=== PATIENT | male | born 1935 | race Caucasian/White ===

== ENCOUNTER 2017-09-11 16:03 | Emergency (ER) | payer MEDICARE, OTHER ==
[~2017-09-11] VITALS: Ht 170.2 cm; Wt 59.0 kg
--- NOTE | 2017-09-11 16:49 | NUR ---
DR FELISA ROBERTO AT PT BEDSIDE AT THIS TIME
[2017-09-11 16:53] VITALS: BP 156/82
--- NOTE | 2017-09-11 17:05 | NUR ---
DR FELISA ROBERTO AT NURSES STATION STATIING THAT PT CAN LEAVE AND CALL NEXT WEEK FOR APPOINTMENT TIME/DATE
[2017-09-11 17:14] VITALS: BP 127/75
== END 2017-09-11 17:14 ==
LOC: ER 16:03
DX: R30.9 Painful micturition, unspecified (principal); R31.9 Hematuria, unspecified; I10 Essential (primary) hypertension; J44.9 Chronic obstructive pulmonary disease, unspecified; F17.210 Nicotine dependence, cigarettes, uncomplicated; Z95.818 Presence of other cardiac implants and grafts
CPT/HCPCS: 99281

== ENCOUNTER 2018-08-07 09:44 | Emergency (ER) | payer MEDICARE, OTHER ==
[~2018-08-07] VITALS: Ht 172.7 cm; Wt 68.0 kg
[2018-08-07 10:13] VITALS: BP 145/71
[2018-08-07] MEDS ORDERED: TORADOL IM STA (10:37)
--- NOTE | 2018-08-07 10:44 | ER.PDOC ---
General Chief Complaint: Extremities Stated Complaint: RIGHT KNEE INJURY, FALL TRAVEL OUT OF US: No Time seen by MD: 10:44 Source: patient Exam Limitations: no limitations History of Present Illness Timing/Duration: 24 hours Severity: moderate Modifying Factors: improves with immobilization, improves with medication, improves with movement, improves with rest Allergies: Coded Allergies: codeine (Verified Adverse Reaction, Intermediate, 08/07/18) AGGITATION tramadol (Verified Adverse Reaction, Intermediate, 08/07/18) AGGITATION Past Medical History Medical History: coronary artery disease, cardiac problems, COPD, GERD, high cholesterol, hypertension, vascular disease Surgical History: cardiac cath, angioplasty, back, stent Social History Smoking: non-smoker, greater than 1 pack/day Alcohol Use: occassionally Drug Use: none Reviewed Nursing Reviewed: Vital Signs, Abn. 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 Skin: Normal Color Lymphatic: No Adenopathy Results/Orders Results/Orders Orders - JOSE GUADALUPE KING MD Xr Knee Rt 3v (08/07/18 ) Ketorolac Tromethamine (Toradol) (08/07/18 10:37) Ketorolac Tromethamine (Toradol) (08/07/18 10:45) Vital Signs Date Time Temp Pulse Resp B/P (MAP) Pulse Ox O2 Delivery O2 Flow Rate FiO2 08/07/18 10:13 98.1 58 14 145/71 (95) 98 Room Air 98.1 08/07/18 10:09 98.1 58 16 98 Room Air 98.1 08/07/18 10:09 98.1 58 14 98.1 Administered Medications Medications (Trade) Dose Ordered Sig/Dominic Route PRN Reason Start Time Stop Time Status Last Admin Dose Admin Ketorolac Tromethamine (Toradol) 30 mg STAT STAT IM 08/07/18 10:37 08/07/18 10:39 DC 08/07/18 10:54 30 MG Course Vitals & review Data Vital Sign - Last 24 Hours 08/07/18 08/07/18 08/07/18 10:09 10:09 10:13 Temp 98.1 98.1 98.1 98.1 98.1 98.1 Pulse 58 58 58 Resp 14 16 14 B/P (MAP) 145/71 (95) Pulse Ox 98 98 O2 Delivery Room Air Room Air Sepsis Infection Criteria Pres: None O2 Sat by Pulse Oximetry: 98 Departure Time of Disposition: 11:33 Disposition: 01 HOME, SELF-CARE Impression: Primary Impression: Lumbar radiculopathy Additional Impression: Sprain, knee Condition: Improved Referrals: SMITHA CASTRO (PCP) PRIMARY CARE PROVIDER Duration or Time Spent with Pa: 1 HR Problem Qualifiers JOSE GUADALUPE KING MD Aug 07, 2018 10:44
[2018-08-07] MEDS ORDERED: TORADOL ONE (10:45)
--- NOTE | 2018-08-07 11:14 | DIREP ---
PROCEDURE:XRAY KNEE 3 VIEWS-RT COMPARISON:None. INDICATIONS:knee pain, twisting injury FINDINGS: BONES:No fracture identified. Diffuse degenerative change, including osteophytosis. Patellar enthesophyte. JOINTS:Mild tricompartmental joint space narrowing, most pronounced within the medial femorotibial joint space. SOFT TISSUES:Soft tissue calcifications are identified. OTHER:No additional findings. CONCLUSION: 1. No fracture identified. 2. Degenerative change. Dictated by: Roc Martinez MD on 08/07/2018 at 11:11 AM
[2018-08-07 11:15] VITALS: BP 141/71
[2018-08-07 11:45] VITALS: BP 135/67
== END 2018-08-07 11:30 | disposition home or self-care (01) ==
LOC: ER 09:44
DX: S83.91XA Sprain of unspecified site of right knee, initial encounter (principal); I25.10 Atherosclerotic heart disease of native coronary artery without angina pectoris; J44.9 Chronic obstructive pulmonary disease, unspecified; K21.9 Gastro-esophageal reflux disease without esophagitis; E78.00 Pure hypercholesterolemia, unspecified; F17.210 Nicotine dependence, cigarettes, uncomplicated; I10 Essential (primary) hypertension; M54.16 Radiculopathy, lumbar region; Z88.5 Allergy status to narcotic agent; Z88.8 Allergy status to other drugs, medicaments and biological substances; W19.XXXA Unspecified fall, initial encounter; Y93.89 Activity, other specified; Y92.89 Other specified places as the place of occurrence of the external cause; Y99.8 Other external cause status
CPT/HCPCS: 73562; 96372; 99284; J1885

== ENCOUNTER 2019-04-17 13:53 | Emergency (ER) | payer OTHER, MEDICARE ==
[~2019-04-17] VITALS: Ht 172.7 cm; Wt 58.1 kg
--- NOTE | 2019-04-17 14:16 | NUR ---
PATIENT PLACED IN ROOM AND URINE SPECIMEN TAKEN TO LAB. DR KING AT BEDSIDE EXAMINING PATIENT.
[2019-04-17 14:29] VITALS: BP 112/62
[2019-04-17 14:31] LABS: BILIRUBIN,URINE NEGATIVE (NEGATIVE)
[2019-04-17 14:35] LABS: BASOPHIL % 0.2 % (0.0-0.2); EOSINOPHIL # 0.1 10^3/uL (0.0-0.2); EOSINOPHIL % 1.1 % (0.0-5.0); HEMOGLOBIN 14.4 g/dL (13.9-16.3); LYMPHOCYTES # 1.2 10^3/uL (1.0-4.8); LYMPHOCYTES % 8.8 % (24.0-44.0); MEAN CELL HGB 31.5 pg (26-34); MEAN CELL HGB CONCENTRATION 33.8 g/dL (33-37); MEAN CORP VOLUME 93.2 fL (78-100); MEAN PLATELET VOLUME 9.3 fL (7.8-11.0); MONOCYTES # 1.1 10^3/uL (0.3-0.8); MONOCYTES % 8.7 % (5.0-12.0); NEUTROPHIL # 10.6 10^3/uL (1.8-7.7); RED CELL DISTRIBUTION WIDTH 14.6 % (11.5-14.5); WHITE BLOOD CELL 13.1 10^3/uL (4.5-11.0)
[2019-04-17 14:36] LABS: APPEARANCE,URINE BLOODY (CLEAR); UA COLOR BLOODY (YELLOW)
[2019-04-17 14:51] LABS: CALCIUM 8.8 mg/dL (8.4-10.5); CARBON DIOXIDE 28.5 mmol/L (20.0-32)
--- NOTE | 2019-04-17 15:52 | ER.PDOC ---
General Chief Complaint: Male Stated Complaint: MALE Time seen by MD: 15:44 Source: patient Exam Limitations: no limitations History of Present Illness Timing/Duration: just prior to arrival Severity/Quality: moderate Associated Symptoms: Dysuria, Hematuria Sexual History: Non-contributory Prior symptoms/Treatment: Similar symptoms previous Allergies: Coded Allergies: codeine (Verified Adverse Reaction, Intermediate, 08/07/18) AGGITATION Past Medical History Medical History: coronary artery disease, COPD Surgical History: cardiac cath, neck, stent Social History Alcohol Use: occassionally Drug Use: none Reviewed Nursing Reviewed: Vital Signs, Abn. 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 (04/17/19 14:17) Urinalysis (04/17/19 14:17) Irrigate Bennett Catheter (04/17/19 14:17) Bennett Irrigation (04/17/19 14:17) Urine Culture (04/17/19 14:00) Vital Signs Date Time Temp Pulse Resp B/P (MAP) Pulse Ox O2 Delivery O2 Flow Rate FiO2 04/17/19 14:29 98.6 72 18 112/62 (79) 98 Room Air 04/17/19 14:29 98.6 72 18 04/17/19 14:02 98.6 75 18 98 Laboratory Tests Test 04/17/19 14:00 04/17/19 14:25 Urine Collection Type UNKNOWN Urine Color BLOODY (YELLOW) H Urine Appearance BLOODY (CLEAR) H Urine Bilirubin NEGATIVE MG/DL (NEGATIVE) Urine Ketones NEGATIVE (NEGATIVE) Urine Specific [place] 1.010 (1.005-1.035) Urine pH 7 (5.0-6.0) Urine Protein 500 mg/dL (NEGATIVE) H Urine Urobilinogen 8.0 (NEGATIVE) H Urine Nitrate NEGATIVE (NEGATAIVE) Urine Leukocyte Esterase 100/ul 1+ (NEGATIVE) Urine Blood 250 4+ (NEGATIVE) H Urine RBC TNTC RBC/HPF (NONE SEEN) H Urine WBC 10-25 WBC/HPF (0-2) H Urine Squamous Epithelial Cells NONE SEEN #/HPF (FEW) Urine Bacteria NONE SEEN (NONE SEEN) Urine Glucose NORMAL (NEGATIVE) White Blood Count 13.1 10^3/uL (4.5-11.0) H Red Blood Count 4.57 10^6/uL (4.50-5.90) Hemoglobin 14.4 g/dL (13.9-16.3) Hematocrit 42.6 % (37.0-53.0) Mean Corpuscular Volume 93.2 fL (78-100) Mean Corpuscular Hemoglobin 31.5 pg (26-34) Mean Corpuscular Hemoglobin Concent 33.8 g/dL (33-37) Red Cell Distribution Width 14.6 % (11.5-14.5) H Platelet Count 211 10^3/uL (150-400) Mean Platelet Volume 9.3 fL (7.8-11.0) Neutrophils (%) (Auto) 81.0 % (41.0-85.0) Lymphocytes (%) (Auto) 8.8 % (24.0-44.0) L Monocytes (%) (Auto) 8.7 % (5.0-12.0) Neutrophils # (Auto) 10.6 10^3/uL (1.8-7.7) H Lymphocytes # (Auto) 1.2 10^3/uL (1.0-4.8) Monocytes # (Auto) 1.1 10^3/uL (0.3-0.8) H Absolute Immature Granulocyte (auto 0.03 10^3 u/L (0-2) Immature Granulocytes % 0.20 % (0.00-0.50) Eosinophils % 1.1 % (0.0-5.0) Basophils % 0.2 % (0.0-0.2) Basophils # 0.0 10^3/uL (0.0-0.1) Eosinophil Count 0.1 10^3/uL (0.0-0.2) Prothrombin Time 11.4 SEC (9.4-11.5) Prothrombin Time INR (Non-Therap) 1.1 Activated Partial Thromboplast Time 23.9 SEC (24.67-30.72) Sodium Level 139 mmol/L (132-145) Potassium Level 4.2 mmol/L (3.6-5.2) Chloride Level 103.0 mmol/L (96-109) Carbon Dioxide Level 28.5 mmol/L (20.0-32) Anion Gap 11.7 Blood Urea Nitrogen 10 mg/dL (7-18) Creatinine 0.88 mg/dL (0.59-1.40) Estimated GFR () 99.6 (>/=60) BUN/Creatinine Ratio 11.0 Glucose Level 95 mg/dL (70-110) Calcium Level 8.8 mg/dL (8.4-10.5) Total Bilirubin 0.9 mg/dL (0.2-1.0) Aspartate Amino Transferase (AST) 14 U/L (0-35) Alanine Aminotransferase (ALT) 15 U/L (12-78) Alkaline Phosphatase 82 U/L (50-136) Total Protein 6.6 g/dL (6.4-8.2) Albumin 3.5 g/dL (3.4-5.0) Globulin 3.1 Amylase Level 17 U/L (25-115) L Lipase 54 U/L (114-286) L Helicobacter pylori Screen NEGATIVE (NEGATIVE) Consult/PCP Time Consult/PCP Called: 16:22 Consult/PCP: DR ROBERTO Departure Time of Disposition: 18:11 Disposition: 01 HOME, SELF-CARE Impression: Primary Impression: Cystitis Additional Impression: Hematuria Condition: Improved Referrals: SMITHA CASTRO (PCP) PRIMARY CARE PROVIDER Duration or Time Spent with Pa: 13M Problem Qualifiers JOSE GUADALUPE KING MD Apr 17, 2019 15:52
--- NOTE | 2019-04-17 17:14 | NUR ---
UPDATE MATHIS INSERTED AND IRRIGATED WITH STERILE WATER ABOUT 30ML X2. CLEAR BLOODY URINE RETURNED INTO TUBING AND DRAINING WITHOUT COMPLICATION.
--- NOTE | 2019-04-17 18:50 | NUR ---
alvarado catheter removed with bright red blood still draining. patient voided after removal with no difficulty. patient educated to come back to ed if any problems occur with urinating or for any other concerns.
[2019-04-17 18:59] VITALS: BP 153/74
== END 2019-04-17 18:59 | disposition home or self-care (01) ==
LOC: ER 13:53
DX: N30.91 Cystitis, unspecified with hematuria (principal); J44.9 Chronic obstructive pulmonary disease, unspecified; I25.10 Atherosclerotic heart disease of native coronary artery without angina pectoris; Z88.5 Allergy status to narcotic agent
CPT/HCPCS: 36415; 80053; 81000; 82150; 83690; 85025; 85610; 85730; 86677; 87077; 87086; 87186; 99284

== ENCOUNTER → 2019-07-22 | Outpatient (CLI) | payer MEDICARE, OTHER ==
--- NOTE | 2019-07-22 14:21 | DIREP ---
PROCEDURE:US DUPLEX EXTREM VEINS UNILATER/LIMITED-RT COMPARISON:None. INDICATIONS:RIGHT LOWER EXTREMITY SWELLING TECHNIQUE:The right lower extremity was evaluated utilizing mcdaniels scale images with segmental compression, color Doppler, and spectral Doppler with respiratory variation and augmentation. FINDINGS: Common femoral vein:Patent Profunda femoris vein: Patent Superficial femoral vein:Patent Popliteal vein:Patent Posterior tibial vein:Patent Peroneal vein:Patent Saphenofemoral junction:Patent Waveforms: Within normal limits. Soft tissue edema is visualized in the right posterior calf. CONCLUSION:No evidence of deep venous thrombosis of the right lower extremity. Dictated by: LIZETTE Physician on 07/22/2019 at 02:09 PM ac
== END | disposition home or self-care (01) ==
LOC: RAD 13:31
PROVIDERS: ATTEND Physician Assistant
DX: R22.41 Localized swelling, mass and lump, right lower limb (principal)
CPT/HCPCS: 93971